=== PATIENT | female | born 1935 | race Caucasian/White ===

== ENCOUNTER 2017-03-30 07:21 | Emergency (ER) | payer MEDICARE ==
[~2017-03-30] VITALS: Ht 160 cm; Wt 53.0 kg
[~2017-03-30 07:21] MED LIST: ASPI325T PO; ATEN1TAB73 PO; BUDE.5I NEB; CENTTAB; DEXI60CA PO; FEXO15TA PO; IPRA0.02 NEB; MOBI7.5T PO; PRAS5TAB PO; ROSU1TAB4 PO; TUMS500C CHEW; VAGI10TA VAGINAL; VALA500T PO; VASO10TA8 PO; VITA400C59 CHEW; XOPEAER4 INH
[2017-03-30 07:27] VITALS: BP 175/77; PULSE 86; RESP 16; TEMP 97.9; O2SAT 99
[2017-03-30] MEDS ORDERED: VALT500T PO (07:48)
[2017-03-30] MEDS ORDERED: VAGI10TA VAGINAL (07:48)
[2017-03-30] MEDS ORDERED: ALBUAER3 INH (07:48)
[2017-03-30] MEDS ORDERED: ENAL10TA PO (07:48)
[2017-03-30] MEDS ORDERED: DEXI60CA2 PO (07:48)
--- NOTE | 2017-03-30 07:54 | PD ---
HPI Chief Complaint: Respiratory Symptoms Time Seen by Provider: 07:49 Travel History International Travel<30 days: No Contact w/Intl Traveler<30days: No Traveled to known affect area: No History of Present Illness HPI This patient appears visibly anxious. She woke up this morning at 5 AM complaining of palpitations and nausea. She could feel her heartbeat in her chest. She is not having any pain or pressure or tightness or heaviness. Severity was mild to moderate. Duration 2 hours. No alleviating factors. She has no vomiting or diarrhea or fever or presyncopal symptoms. PFSH Past Medical History Arthritis: Yes Asthma: Yes Heart Rhythm Problems: Yes Cardiovascular Problems: Yes Diminished Hearing: No GERD: Yes Hypertension: Yes Respiratory: Yes Immunizations Current: Yes PNEUMOCCOCAL Vaccine (Year): 1999 Menopausal: Yes Para: 2 Past Surgical History Appendectomy: Yes Cardiac Surgery: Yes (COARTATION OF AORTA IN 1965) Eye Surgery: Yes (CATARACTS SURGERY BOTH EYES) Hysterectomy: Yes Tonsillectomy: Yes (ADENOIDECTOMY) Social History Alcohol Use: Yes (SOCIALLY) Tobacco Use: No (QUIT 50 YEARS AGO) Substance Use: No Allergies-Medications (Allergen,Severity, Reaction): Coded Allergies: Demerol (Verified Allergy, Severe, RASH, 03/30/17) Sulfa (Verified Allergy, Severe, NAUSEA AND VOMITING, 03/30/17) Fentanyl (Verified Allergy, Intermediate, Vomiting , 03/30/17) Reported Meds & Prescriptions Reported Meds & Active Scripts Active Reported Proair Hfa 8.5 GM Inh (Albuterol Sulfate) 90 Mcg/Act Aer 2 Puff INH Q4-6H PRN 108 mcg/actuation Vagifem Vaginal (Estradiol Vaginal) 10 Mcg Vagtab 25 Mcg VAGINAL 2XWEEK Valtrex (Valacyclovir HCl) 500 Mg Tab 250 Mg PO DAILY Enalapril (Enalapril Maleate) 10 Mg Tab 10 Mg PO DAILY Dexilant (Dexlansoprazole) 60 Mg Vinh.bp 1 Cap PO DAILY Effient (Prasugrel) 5 Mg Tab 5 Mg PO DAILY Danelle Allergy (Fexofenadine HCl) 180 Mg Tab 180 Mg PO DAILY Pulmicort Respules (Budesonide) 0.5 Mg/2 Ml Neb 0.5 Mg NEB DAILY NEB Tenormin (Atenolol) 25 Mg Tab 25 Mg PO DAILY Aspirin 325 Mg Tab 325 Mg PO DAILY Review of Systems General / Constitutional: No: Fever Eyes: No: Visual changes HENT: No: Headaches Cardiovascular: Positive: Palpitations, No: Chest Pain or Discomfort Respiratory: No: Shortness of Breath Gastrointestinal: Positive: Nausea, No: Abdominal Pain Genitourinary: No: Dysuria Musculoskeletal: No: Pain Skin: No Rash Neurologic: No: Weakness Psychiatric: Positive: Anxiety, No: Depression Endocrine: No: Polydipsia Hematologic/Lymphatic: No: Easy Bruising Physical Exam Narrative GENERAL: Thin elderly well-developed patient in no apparent distress. SKIN: Focused skin assessment reveals no rash and nodules. Skin is Warm and dry. HEAD: Atraumatic. Normocephalic. EYES: Pupils equal and round. No scleral icterus. No injection or drainage. ENT: No nasal bleeding or discharge. Mucous membranes pink and moist. NECK: Trachea midline. No JVD. CARDIOVASCULAR: Regular rate and rhythm. No murmur appreciated. RESPIRATORY: No accessory muscle use. Clear to auscultation. Breath sounds equal bilaterally. GASTROINTESTINAL: Abdomen soft, non-tender, nondistended. Hepatic and splenic margins not palpable. MUSCULOSKELETAL: No obvious deformities. No clubbing. No cyanosis. No edema. NEUROLOGICAL: Awake and alert. No obvious cranial nerve deficits. Motor grossly within normal limits. Normal speech. PSYCHIATRIC: Anxious mood and affect; insight and judgment normal. Data Data Last Documented VS Vital Signs Date Time Temp Pulse Resp B/P Pulse Ox O2 Delivery O2 Flow Rate FiO2 03/30/17 08:40 62 18 176/93 98 Room Air 03/30/17 07:27 97.9 Orders Iv Access Insert/Monitor (03/30/17 07:49) Electrocardiogram (03/30/17 ) Metalizing Machine Operator / Telemetry [email or web address] (03/30/17 07:49) Complete Blood Count With Diff (03/30/17 07:49) Basic Metabolic Panel (Bmp) (03/30/17 07:49) Clonidine (Catapres) (03/30/17 08:00) Labs Laboratory Tests Test 03/30/17 08:09 White Blood Count 5.3 TH/MM3 Red Blood Count 4.52 MIL/MM3 Hemoglobin 13.1 GM/DL Hematocrit 39.1 % Mean Corpuscular Volume 86.6 FL Mean Corpuscular Hemoglobin 29.1 PG Mean Corpuscular Hemoglobin 33.6 % Concent Red Cell Distribution Width 13.4 % Platelet Count 174 TH/MM3 Mean Platelet Volume 8.4 FL Neutrophils (%) (Auto) 71.7 % Lymphocytes (%) (Auto) 17.1 % Monocytes (%) (Auto) 8.5 % Eosinophils (%) (Auto) 1.8 % Basophils (%) (Auto) 0.9 % Neutrophils # (Auto) 3.8 TH/MM3 Lymphocytes # (Auto) 0.9 TH/MM3 Monocytes # (Auto) 0.5 TH/MM3 Eosinophils # (Auto) 0.1 TH/MM3 Basophils # (Auto) 0.0 TH/MM3 CBC Comment DIFF FINAL Differential Comment Sodium Level 144 MEQ/L Potassium Level 3.7 MEQ/L Chloride Level 108 MEQ/L Carbon Dioxide Level 30.8 MEQ/L Anion Gap 5 MEQ/L Blood Urea Nitrogen 17 MG/DL Creatinine 0.73 MG/DL Estimat Glomerular Filtration 77 ML/MIN Rate Random Glucose 95 MG/DL Calcium Level 9.3 MG/DL [facility] Medical Decision Making Medical Screen Exam Complete: Yes Emergency Medical Condition: Yes Medical Record Reviewed: Yes Differential Diagnosis Anxiety, cardiac arrhythmia, electrolyte abnormality Narrative Course I have reviewed the patient's electronic medical record. History of cardiac stent placed in January I reviewed her EKG which shows sinus rhythm with no ST elevation or ectopy Extended cardiac monitoring reveals sinus rhythm without ectopy No clinical suspicion of ACS here IV placed CBC is normal Metabolic profile is normal Patient has accelerated hypertension and a dose of clonidine given her blood pressure will be reassessed Blood pressure is improved on reevaluation No evidence of emergent condition here. Recommend primary care follow-up. I suspect that there was some anxiety involved. Diagnosis Primary Impression: Heart palpitations Additional Impressions: Accelerated hypertension Anxiety Additional Instructions: The patient was advised to follow up with their physician and return if they worsen. Check and record blood pressure daily Med/Other Pt SpecificInfo: Other Disposition: DISCHARGE HOME Condition: Stable Tin Roque MD Mar 30, 2017 07:54
[2017-03-30] MEDS ORDERED: cloNIDine HCL 0.2 MG TAB PO ONE (08:00)
[2017-03-30 08:18] VITALS: BP 198/107; PULSE 66; RESP 18; O2SAT 98
[2017-03-30 08:24] LABS: AUTOMATED NEUTROPHIL # 3.8 TH/MM3 (1.8-7.7); BASOPHIL % 0.9 % (0.0-2.0); EOSINOPHIL # 0.1 TH/MM3 (0-0.4); EOSINOPHIL % 1.8 % (0.0-4.0); HEMATOCRIT 39.1 % (35.0-46.0); HEMO FLAGS DIFF FINAL; LYMPH % 17.1 % (9.0-44.0); LYMPHOCYTE # 0.9 TH/MM3 (1.0-4.8); MEAN CELL VOLUME 86.6 FL (80.0-100.0); MEAN CORPUSCULAR HEMOGLOBIN 29.1 PG (27.0-34.0); MEAN CORPUSCULAR HGB CONC 33.6 % (32.0-36.0); MONO % 8.5 % (0.0-8.0); NEUT % 71.7 % (16.0-70.0); PLATELET COUNT 174 TH/MM3 (150-450); RED BLOOD COUNT 4.52 MIL/MM3 (4.00-5.30); RED CELL DISTRIBUTION WIDTH 13.4 % (11.6-17.2); WHITE BLOOD COUNT 5.3 TH/MM3 (4.0-11.0)
[2017-03-30 08:33] LABS: POTASSIUM 3.7 MEQ/L (3.5-5.1)
[2017-03-30 08:36] LABS: BICARBONATE 30.8 MEQ/L (21.0-32.0)
[2017-03-30 08:40] VITALS: BP 176/93; PULSE 62; RESP 18; O2SAT 98
[2017-03-30 09:48] VITALS: BP 145/54
--- NOTE | 2017-03-30 12:24 | EKG ---
Date Performed: 03/30/2017 Time Performed: 07:36:07 PTAGE: 81 years EKG: Sinus rhythm LEFT ANTERIOR FASCICULAR BLOCK LEFT VENTRICULAR HYPERTROPHY AND ST-T CHANGE POSSIBLE ANTEROSEPTAL MY OCARDIAL INFARCTION ABNORMAL ECG PREVIOUS TRACING : 10/31/2015 16.20 Compared to prior tracing no significant change DOCTOR: Lucas Lai Interpretating Date/Time 03/30/2017 12:21:56
== END 2017-03-30 09:53 | disposition home or self-care (01) ==
LOC: PHED 07:21
DX: R00.2 Palpitations (principal); I10 Essential (primary) hypertension; F41.9 Anxiety disorder, unspecified; R94.31 Abnormal electrocardiogram [ECG] [EKG]; R11.0 Nausea; Z87.39 Personal history of other diseases of the musculoskeletal system and connective tissue; Z87.09 Personal history of other diseases of the respiratory system; Z86.79 Personal history of other diseases of the circulatory system; Z87.19 Personal history of other diseases of the digestive system
CPT/HCPCS: 80048; 85025; 93005; 99284

== ENCOUNTER 2017-06-22 08:17 | Observation (INO) | payer MEDICARE ==
[~2017-06-22] VITALS: Ht 160 cm; Wt 52.5 kg
[2017-06-22] VITALS (7 sets, daily range): BP systolic 126–165; BP diastolic 59–70; PULSE 56–68; RESP 14–18; TEMP 97.6–98.4; O2SAT 96–99
[~2017-06-22 08:17] MED LIST changes: +ALBUAER3 INH; +ASPI-183 PO; -ASPI325T PO; -CENTTAB; -DEXI60CA PO; +DEXI60CA3 PO; +ENAL10TA PO; -IPRA0.02 NEB; -MOBI7.5T PO; -ROSU1TAB4 PO; -TUMS500C CHEW; -VALA500T PO; +VALT500T PO; -VASO10TA8 PO; -VITA400C59 CHEW; -XOPEAER4 INH
[2017-06-22] MEDS ORDERED: PROT40TA PO (08:40)
[2017-06-22] MEDS ORDERED: SODIUM CHLORIDE 0.9% FLUSH 10 ML FLUSH IVF PRN (09:00)
--- NOTE | 2017-06-22 09:02 | PD ---
HPI Chief Complaint: Syncope/Near-Syncope Time Seen by Provider: 08:47 Travel History International Travel<30 days: No Contact w/Intl Traveler<30days: No Traveled to known affect area: No History of Present Illness HPI 82-year-old female patient with history of CAD status post stenting, hypertension, patient of Dr. Motta, presents to the ER today because she had an episode of lightheadedness, epigastric and substernal discomfort which she states is not really a pain, and felt like she was going to pass out. She states that she has had some more minor episodes recently in the past few months after she had received a stent in January, and states that her merchant mariner has been changing her medications. She also states she feels somewhat short of breath. She denies any coughing, fevers, vomiting, or any other symptoms. Modifying Factors: None Associated Signs & Symptoms: Substernal and epigastric discomfort, shortness of breath, near-syncope Risk Factors: Cardiac history PFSH Past Medical History Hx Anticoagulant Therapy: Yes Arthritis: Yes Asthma: Yes Heart Rhythm Problems: Yes Cardiac Catheterization: Yes Cardiovascular Problems: Yes Diminished Hearing: No GERD: Yes Hypertension: Yes Respiratory: Yes Immunizations Current: Yes Tetanus Vaccination: > 5 Years PNEUMOCCOCAL Vaccine (Year): 1999 ?: Not Menopausal: Yes Para: 2 Past Surgical History Appendectomy: Yes Cardiac Surgery: Yes (COARTATION OF AORTA IN 1965) Coronary Stent: Yes Eye Surgery: Yes (CATARACTS SURGERY BOTH EYES) Hysterectomy: Yes Tonsillectomy: Yes (ADENOIDECTOMY) Social History Alcohol Use: Yes (SOCIALLY) Tobacco Use: No (QUIT 50 YEARS AGO) Substance Use: No Allergies-Medications (Allergen,Severity, Reaction): Coded Allergies: Sulfa (Sulfonamide Antibiotics) (Unverified Allergy, Severe, NAUSEA AND VOMITING, 06/22/17) meperidine (Unverified Allergy, Severe, RASH, 06/22/17) fentanyl (Unverified Allergy, Intermediate, Vomiting , 06/22/17) Reported Meds & Prescriptions Reported Meds & Active Scripts Active Reported Protonix (Pantoprazole Sodium) 40 Mg Tab 40 Mg PO DAILY Proair Hfa 8.5 GM Inh (Albuterol Sulfate) 90 Mcg/Act Aer 2 Puff INH Q4-6H PRN 108 mcg/actuation Enalapril (Enalapril Maleate) 10 Mg Tab 10 Mg PO DAILY Effient (Prasugrel) 5 Mg Tab 5 Mg PO DAILY Danelle Allergy (Fexofenadine HCl) 180 Mg Tab 180 Mg PO DAILY Pulmicort Respules (Budesonide) 0.5 Mg/2 Ml Neb 0.5 Mg NEB DAILY NEB Tenormin (Atenolol) 25 Mg Tab 25 Mg PO DAILY Aspirin 325 Mg Tab 81 Mg PO DAILY Review of Systems Except as stated in HPI: all other systems reviewed are Neg Physical Exam Narrative GENERAL: Well-developed elderly white female patient currently in mild distress. Awake, alert, oriented 3. SKIN: Focused skin assessment warm/dry. HEAD: Atraumatic. Normocephalic. EYES: Pupils equal and round. No scleral icterus. No injection or drainage. ENT: No nasal bleeding or discharge. Mucous membranes pink and moist. NECK: Trachea midline. No JVD. CARDIOVASCULAR: Regular rate and rhythm. No murmur appreciated. Pulses are present and equal bilaterally. RESPIRATORY: Mild accessory muscle use. Clear to auscultation. Breath sounds equal bilaterally. GASTROINTESTINAL: Abdomen soft, non-tender, nondistended. Hepatic and splenic margins not palpable. MUSCULOSKELETAL: No obvious deformities. No clubbing. No cyanosis. No edema. NEUROLOGICAL: Awake and alert. No obvious cranial nerve deficits. Motor grossly within normal limits. Normal speech. PSYCHIATRIC: Appropriate mood and affect; insight and judgment normal. Data Data Last Documented VS Vital Signs Date Time Temp Pulse Resp B/P (MAP) Pulse Ox O2 Delivery O2 Flow Rate FiO2 06/22/17 08:31 100 06/22/17 08:20 97.6 68 14 165/70 (101) Orders Orders Electrocardiogram (06/22/17 ) Electrocardiogram (06/22/17 08:47) Complete Blood Count With Diff (06/22/17 08:47) Comprehensive Metabolic Panel (06/22/17 08:47) Magnesium (Mg) (06/22/17 08:47) B-Type Natriuretic Peptide (06/22/17 08:47) Ckmb (Isoenzyme) Profile (06/22/17 08:47) Troponin I (06/22/17 08:47) Act Partial Throm Time (Ptt) (06/22/17 08:47) Prothrombin Time / Inr (Pt) (06/22/17 08:47) Urinalysis - C+S If Indicated (06/22/17 08:47) Chest, Single Ap (06/22/17 08:47) Ecg Monitoring (06/22/17 08:47) Iv Access Insert/Monitor (06/22/17 08:47) Oximetry (06/22/17 08:47) Sodium Chloride 0.9% Flush (Ns Flush) (06/22/17 09:00) D-Dimer (06/22/17 09:05) Admit Order (Ed Use Only) (06/22/17 12:32) Labs Laboratory Tests Test 06/22/17 09:00 06/22/17 11:53 White Blood Count 5.9 TH/MM3 Red Blood Count 4.56 MIL/MM3 Hemoglobin 13.3 GM/DL Hematocrit 39.8 % Mean Corpuscular Volume 87.2 FL Mean Corpuscular Hemoglobin 29.1 PG Mean Corpuscular Hemoglobin Concent 33.4 % Red Cell Distribution Width 15.0 % Platelet Count 166 TH/MM3 Mean Platelet Volume 8.6 FL Neutrophils (%) (Auto) 71.7 % Lymphocytes (%) (Auto) 17.1 % Monocytes (%) (Auto) 8.6 % Eosinophils (%) (Auto) 1.8 % Basophils (%) (Auto) 0.8 % Neutrophils # (Auto) 4.3 TH/MM3 Lymphocytes # (Auto) 1.0 TH/MM3 Monocytes # (Auto) 0.5 TH/MM3 Eosinophils # (Auto) 0.1 TH/MM3 Basophils # (Auto) 0.0 TH/MM3 CBC Comment DIFF FINAL Differential Comment Prothrombin Time 10.7 SEC Prothromb Time International Ratio 1.0 RATIO Activated Partial Thromboplast Time 25.5 SEC D-Dimer Quantitative (PE/DVT) 0.51 MG/L FEU Blood Urea Nitrogen 25 MG/DL Creatinine 0.83 MG/DL Random Glucose 82 MG/DL Total Protein 7.2 GM/DL Albumin 3.5 GM/DL Calcium Level 9.2 MG/DL Magnesium Level 2.2 MG/DL Alkaline Phosphatase 64 U/L Aspartate Amino Transf (AST/SGOT) 28 U/L Alanine Aminotransferase (ALT/SGPT) 29 U/L Total Bilirubin 0.4 MG/DL Sodium Level 139 MEQ/L Potassium Level 3.7 MEQ/L Chloride Level 104 MEQ/L Carbon Dioxide Level 29.1 MEQ/L Anion Gap 6 MEQ/L Estimat Glomerular Filtration Rate 66 ML/MIN Total Creatine Kinase 61 U/L Troponin I LESS THAN 0.02 NG/ML B-Type Natriuretic Peptide 64 PG/ML Urine Color YELLOW Urine Turbidity HAZY Urine pH 7.0 Urine Specific Kinz[place] 1.012 Urine Protein NEG mg/dL Urine Glucose (UA) NEG mg/dL Urine Ketones NEG mg/dL Urine Occult Blood NEG Urine Nitrite NEG Urine Bilirubin NEG Urine Urobilinogen LESS THAN 2.0 MG/DL Urine Leukocyte Esterase MOD Urine RBC LESS THAN 1 /hpf Urine WBC 1 /hpf Urine Squamous Epithelial Cells 3 /hpf Urine Amorphous Sediment MOD Urine Bacteria OCC /hpf Microscopic Urinalysis Comment CULT NOT INDICATED MDM Medical Decision Making Medical Screen Exam Complete: Yes Emergency Medical Condition: Yes Medical Record Reviewed: Yes Interpretation(s) EKG shows normal sinus rhythm at a rate of 60 bpm with a partial left bundle branch block. No signs of acute ST-T elevations or depressions. Laboratory Tests Test 06/22/17 09:00 Neutrophils (%) (Auto) 71.7 % (16.0-70.0) Monocytes (%) (Auto) 8.6 % (0.0-8.0) D-Dimer Quantitative (PE/DVT) 0.51 MG/L FEU (0.00-0.50) Blood Urea Nitrogen 25 MG/DL (7-18) Estimat Glomerular Filtration Rate 66 ML/MIN (>89) Troponin I LESS THAN 0.02 NG/ML Last 24 hours Impressions Chest X-Ray 06/22/17 0892 Signed Impressions: Service Date/Time: Thursday, June 22, 2017 09:00 - CONCLUSION: Normal examination. Efrain Whitehead MD Differential Diagnosis Chest discomfort, shortness of breath, near-syncope: Dysrhythmias versus ACS versus pneumonia versus asthma exacerbation versus dehydration versus metabolic issues Narrative Course EKG did not show any signs of dysrhythmias. Her cardiac enzymes are negative. D-dimer is essentially negative. Chest x-ray was unremarkable. And she appears fairly comfortable in the ER. Vital signs are stable. Case was discussed with Dr. Khalil who is covering for Dr. Jimenez, patient's merchant mariner , and he would like me to admit the patient as an observation for further evaluation. Case was then discussed with family practice resident service for admission. Diagnosis Primary Impression: Near syncope Admitting Information Admitting Physician Requests: Admit Case Lang MD Jun 22, 2017 09:02
[2017-06-22 09:12] LABS: AUTOMATED NEUTROPHIL # 4.3 TH/MM3 (1.8-7.7); BASOPHIL % 0.8 % (0.0-2.0); EOSINOPHIL # 0.1 TH/MM3 (0-0.4); EOSINOPHIL % 1.8 % (0.0-4.0); HEMATOCRIT 39.8 % (35.0-46.0); HEMO FLAGS DIFF FINAL; LYMPH % 17.1 % (9.0-44.0); MEAN CELL VOLUME 87.2 FL (80.0-100.0); MEAN CORPUSCULAR HEMOGLOBIN 29.1 PG (27.0-34.0); MEAN CORPUSCULAR HGB CONC 33.4 % (32.0-36.0); MONO % 8.6 % (0.0-8.0); NEUT % 71.7 % (16.0-70.0); PLATELET COUNT 166 TH/MM3 (150-450); RED BLOOD COUNT 4.56 MIL/MM3 (4.00-5.30); WHITE BLOOD COUNT 5.9 TH/MM3 (4.0-11.0)
--- NOTE | 2017-06-22 09:18 | RADRPT ---
EXAM DATE/TIME: 06/22/2017 09:00 [facility] COMPARISON: CHEST SINGLE AP, October 31, 2015, 16:29. INDICATIONS : Faint feeling with shortness of breath. MEDICAL HISTORY : Asthma. SURGICAL HISTORY : Coarctation of the aorta. Cardiac stent. ENCOUNTER: Initial ACUITY: 1 day PAIN SCORE: 0/10 LOCATION: Bilateral chest FINDINGS: A single view of the chest demonstrates the lungs to be symmetrically aerated without evidence of mas s, infiltrate or effusion. The cardiomediastinal contours are unremarkable. Osseous structures are intact. CONCLUSION: Normal examination. Efrain Whitehead MD on June 22, 2017 at 9:15 Board Certified Radiologist. This report was verified electronically.
[2017-06-22 09:23] LABS: APTT (PATIENT) 25.5 SEC (24.3-30.1); PROTHROMBIN TIME - PATIENT 10.7 SEC (9.8-11.6)
[2017-06-22 09:32] LABS: ALT (GPT) 29 U/L (10-53); ANION GAP 6 MEQ/L (5-15); BICARBONATE 29.1 MEQ/L (21.0-32.0); BLOOD UREA NITROGEN 25 MG/DL (7-18); CHLORIDE 104 MEQ/L (98-107); GLOMERULAR FILTRATION RATE 66 ML/MIN (>89); MAGNESIUM 2.2 MG/DL (1.5-2.5); POTASSIUM 3.7 MEQ/L (3.5-5.1); SODIUM (NA) 139 MEQ/L (136-145)
[2017-06-22 10:00] LABS: ALKALINE PHOSPHATASE 64 U/L (45-117); AST (GOT) 28 U/L (15-37); TOTAL BILIRUBIN ADULT 0.4 MG/DL (0.2-1.0)
[2017-06-22 10:12] LABS: CREATINE KINASE 61 U/L (26-192)
[2017-06-22 12:08] LABS: BACTERIA, URINE OCC /hpf; BLOOD, URINE NEG (NEG); GLUCOSE,URINE NEG (NEG); KETONE, URINE NEG (NEG); NITRITE,URINE NEG (NEG); SQUAMOUS EPITHELIAL CELL URINE 3 /hpf (0-5); URINE COLOR YELLOW (YELLW/STRAW)
[2017-06-22 12:16] LABS: COMMENT (UR) CULT NOT INDICATED; CULTURE IF INDICATED CULT NOT INDICATED
[2017-06-22] MEDS ORDERED: SODIUM CHLORIDE 0.9% FLUSH 10 ML FLUSH IV FLUSH PRN ×2 (12:45→13:30)
--- NOTE | 2017-06-22 13:04 | HHI.HP ---
[facility] Service Family Medicine Primary Care Physician Niko Byrnes MD Admission Diagnosis near syncope Diagnoses: International Travel<30 Days: No Contact w/Intl Traveler<30days: No Known Affected Area: No History of Present Illness Mrs. Jung is a 82 y/o F with extensive PMHx presenting to the ED with the CC of near syncope and chest pain for the last 4-5 days. She is accompanied by her who assists in the history, however they both cannot convey a complete history especially her daily medication history. She states that she has been having intermittent episodes of diaphoresis, SOB, chest pain, and near syncope once to twice a day with and without activity. This morning while at [employer], she had an episode with diaphoresis, chest pain, and near syncope without shortness of breath lasting approximately half an hour. She describes the chest pain as a lower sternal vs. upper epigastric pain up to 6/10 on the pain scale radiating to her back. Due to her pain, she decided to be evaluated at the ED. She denies any recent fevers, NVD, ABD pain, LE edema or pain, vision changes, or other neurologic symptoms. On ROS she does endorse palpitations with tachycardia, but has since subsided upon presenting to the ED. Recently she self discontinued her Chlorthalidone medication as it "made her feel awful," but otherwise cannot describe any recent changes to her daily medications or routine. Upon further investigation, the patient does state that the pain may be routinely 2-4 hours after she eats, however this morning she did not have anything prior to her episode. After ED evaluation, her cheese pancake roller, Dr. Motta, was consulted. Dr. Khalil, cheese pancake roller front office coordinator, recommended she be admitted for observation and ACS rule out. Review of Systems Constitutional: COMPLAINS OF: Weight loss (with anorexia since Stent placed in 11/01), DENIES: Fever, Dizziness Eyes: DENIES: Blurred vision Ears, nose, mouth, throat: DENIES: Vertigo, Throat pain, Running Nose Respiratory: COMPLAINS OF: Cough, Shortness of breath, DENIES: Hemoptysis, Sputum production Cardiovascular: COMPLAINS OF: Chest pain, Syncope (Pre-Syncope ), Dyspnea on Exertion, DENIES: Lower Extremity Edema Gastrointestinal: DENIES: Abdominal pain, Black stools, Bloody stools, Diarrhea , Nausea, Vomiting Genitourinary: DENIES: Dysuria Musculoskeletal: DENIES: Joint pain Integumentary: DENIES: Rash Hematologic/lymphatic: DENIES: Lymphadenopathy Neurologic: DENIES: Headache Psychiatric: DENIES: Mood changes Past Family Social History Past Medical History Irregular Heartbeat - PVCs Leaky heart valve - no echocardiogram per chart review GERD Hiatal hernia Hypertension Seasonal allergies / recurrent sinusitis Anxiety Stress incontinence Fibrocystic breast disease Spasmodic dysphonia Chronic canker sores Past Surgical History Tonsillectomy 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 SKIN: Warm and dry. No rash. HEENT: Atraumatic, normocephalic with EOMI. PERRLA. MMM. Oropharynx clear. No rhinorrhea. No JVD, LAD, or thyroid abnormality appreciated. Dysphonia of voice. CARDIOVASCULAR: Bradycardic with regular rhythm. No MGR appreciated. 2+ pulses in all 4 extremities. RESPIRATORY: Clear to auscultation bilaterally with no CRW. No increased work of breathing. GASTROINTESTINAL: Abdomen soft, non-tender, nondistended with positive bowel sounds. No masses appreciated. MUSCULOSKELETAL: No cyanosis or edema. Strength grossly WNL. 2+ pulses in all 4 extremities. Capillary refill within normal limits. BACK: Nontender without obvious deformity. No CVA tenderness. NEURO/PSYCH: Afocal. Awake, alert, and oriented x3. Normal speech and judgment. Laboratory Laboratory Tests Test 06/22/17 09:00 06/22/17 11:53 White Blood Count 5.9 Red Blood Count 4.56 Hemoglobin 13.3 Hematocrit 39.8 Mean Corpuscular Volume 87.2 Mean Corpuscular Hemoglobin 29.1 Mean Corpuscular Hemoglobin Concent 33.4 Red Cell Distribution Width 15.0 Platelet Count 166 Mean Platelet Volume 8.6 Neutrophils (%) (Auto) 71.7 Lymphocytes (%) (Auto) 17.1 Monocytes (%) (Auto) 8.6 Eosinophils (%) (Auto) 1.8 Basophils (%) (Auto) 0.8 Neutrophils # (Auto) 4.3 Lymphocytes # (Auto) 1.0 Monocytes # (Auto) 0.5 Eosinophils # (Auto) 0.1 Basophils # (Auto) 0.0 CBC Comment DIFF FINAL Differential Comment Prothrombin Time 10.7 Prothromb Time International Ratio 1.0 Activated Partial Thromboplast Time 25.5 D-Dimer Quantitative (PE/DVT) 0.51 Blood Urea Nitrogen 25 Creatinine 0.83 Random Glucose 82 Total Protein 7.2 Albumin 3.5 Calcium Level 9.2 Magnesium Level 2.2 Alkaline Phosphatase 64 Aspartate Amino Transf (AST/SGOT) 28 Alanine Aminotransferase (ALT/SGPT) 29 Total Bilirubin 0.4 Sodium Level 139 Potassium Level 3.7 Chloride Level 104 Carbon Dioxide Level 29.1 Anion Gap 6 Estimat Glomerular Filtration Rate 66 Total Creatine Kinase 61 Troponin I LESS THAN 0.02 B-Type Natriuretic Peptide 64 Urine Color YELLOW Urine Turbidity HAZY Urine pH 7.0 Urine Specific [place] 1.012 Urine Protein NEG Urine Glucose (UA) NEG Urine Ketones NEG Urine Occult Blood NEG Urine Nitrite NEG Urine Bilirubin NEG Urine Urobilinogen LESS THAN 2.0 Urine Leukocyte Esterase MOD Urine RBC LESS THAN 1 Urine WBC 1 Urine Squamous Epithelial Cells 3 Urine Amorphous Sediment MOD Urine Bacteria OCC Microscopic Urinalysis Comment CULT NOT INDICATED Result Diagram: 06/22/1789906/22/17 0900 Imaging Last 72 hours Impressions Chest X-Ray 06/22/17 0847 Signed Impressions: Service Date/Time: Thursday, June 22, 2017 09:00 - CONCLUSION: Normal examination. MD Srinath Oliva VTE Risk Assessment Srinath VTE Risk Assessment: Mod/High Risk (score >= 2) Vinhrini Risk Assessment Model Point Value = 1 Point Value = 2 Point Value = 3 Point Value = 5 Age 41-60 Minor surgery BMI > 25 kg/m2 Swollen legs Varicose veins or History of unexplained or recurrent spontaneous Oral contraceptives or hormone replacement Sepsis (< 1 month) Serious lung disease, including pneumonia (< 1 month) Abnormal pulmonary function Acute myocardial infarction Congestive heart failure (< 1 month) History of inflammatory bowel disease Medical patient at bed rest Age 61-74 Arthroscopic surgery Major open surgery (> 45 min) Laparoscopic surgery (> 45 min) Malignancy Confined to bed (> 72 hours) Immobilizing plaster cast Central venous access Age >= 75 History of VTE Family history of VTE Factor V Leiden Prothrombin [id number] Lupus anticoagulant Anticardiolipin antibodies Elevated serum homocysteine Heparin-induced thrombocytopenia Other congenital or acquired thrombophilia Stroke (< 1 month) Elective arthroplasty Hip, pelvis, or leg fracture Acute spinal cord injury (< 1 month) Prophylaxis Regimen Total Risk Factor Score Risk Level Prophylaxis Regimen 0-1 Low Early ambulation 2 Moderate Order ONE of the following: *Sequential Compression Device (SCD) *Heparin 5000 units SQ BID 3-4 Higher Order ONE of the following medications: *Heparin 5000 units SQ TID *Enoxaparin/Lovenox 40 mg SQ daily (WT < 150 kg, CrCl > 30 mL/min) *Enoxaparin/Lovenox 30 mg SQ daily (WT < 150 kg, CrCl > 10-29 mL/min) *Enoxaparin/Lovenox 30 mg SQ BID (WT < 150 kg, CrCl > 30 mL/min) AND/OR *Sequential Compression Device (SCD) 5 or more Highest Order ONE of the following medications: *Heparin 5000 units SQ TID (Preferred with Epidurals) *Enoxaparin/Lovenox 40 mg SQ daily (WT < 150 kg, CrCl > 30 mL/min) *Enoxaparin/Lovenox 30 mg SQ daily (WT < 150 kg, CrCl > 10-29 mL/min) *Enoxaparin/Lovenox 30 mg SQ BID (WT < 150 kg, CrCl > 30 mL/min) AND *Sequential Compression Device (SCD) Assessment and Plan Assessment and Plan Mrs. Jung is an 82 y/o female with an extensive past medical history currently admitted for observation secondary to chest pain. Code Status FULL CODE Discussed Condition With Dr. Lang, ED physician Problem List: (1) Chest pain ICD Codes: R07.9 - Chest pain, unspecified Status: Acute Plan: Patient admitted for observation and ACS rule out per cardiology. While pain is lower substernal, the patient's history, exam, and preliminary laboratory evaluation consistent with likely GI associated pain as her pain in epigastric with an isolated elevated BUN. Patient without neurological history and signs of possible TIA/CVA. -CXR: WNL -EKG: Sinus bradycardia without significant change from previous study (04/03) per medical team read. No obvious interval or ST changes appreciated. -Repeat x2 pending -CBC: WNL, H/H stable at 13.3/39.8 -Repeat H/H: Ordered -FOBT: Ordered -Coagulation Panel: WNL -CMP: BUN elevated to 25, otherwise WNL -Troponin: Negative x1 -Repeat x2 pending with CKMB -BNP: Negative at 64 -D-Dimer: Mildly elevated to 0.51 -Lipid Profile: Pending -TSH: Pending -Telemetry ordered -Cardiology consult placed, appreciate recommendations Medications: -Nitroglycerin as needed for chest pain -Continue Effient, ASA, Vasotec, and Atenolol (2) Near syncope ICD Codes: R55 - Syncope and collapse Status: Acute Plan: Patient complaining of near syncopal symptoms and concordance with chest pain -Please see plan as above (3) CAD (coronary artery disease) ICD Codes: I25.10 - Atherosclerotic heart disease of [place] coronary artery without angina pectoris Status: Chronic Plan: Patient with history of CAD with cardiac catheterization and stent placement 02/01 -Patient states she has had a recent echocardiogram and states she does "not have heart failure" -Please see plan as above Medications: -Continue home Prasugrel, ASA, and Rosuvastatin (4) GERD (gastroesophageal reflux disease) ICD Codes: K21.9 - Gastroesophageal reflux disease Status: Chronic Plan: Patient with history of GERD and hiatal hernia. Patient states she had a recent upper endoscopy with her GI specialist (unknown) was normal showing only her hiatal hernia per patient. Per exam, history, and preliminary work up pain likely secondary to GI source. Patient also has dysphagia requiring esophageal dilation multiple times per year. Patient does not endorse difficulty swallowing or vomiting currently. -CBC: WNL -Repeat H/H: ordered -FOBT: ordered -CMP: BUN elevated 25, otherwise negative -Defer GI consult as patient is currently without pain, low threshold to consult pending clinical course Medications: -Continue Protonix 40mg twice a day -Maalox as need for reflux chest pain (5) Chronic asthma ICD Codes: J45.909 - Unspecified asthma, uncomplicated Status: Chronic Plan: Patient with history of chronic asthma on Spiriva and Albuterol as needed at home -Exam: WNL with pulse oximetry of 100% -Pulse oximetry with VS checks, NC oxygen as needed -Incentive Spirometry Medications: -Continue home Spiriva and Albuterol as needed (6) Nutrition, metabolism, and development symptoms ICD Codes: R63.8 - Other symptoms and signs concerning food and fluid intake Status: Acute Plan: Diet: Regular as tolerated Fluids: Tolerating fluids by mouth Electrolytes: WNL, continue to monitor Prophylaxis: Protonix and Maalox for GI prophylaxis, Albuterol for SOB, Clonidine for BP >180/110, Tylenol for Headache/Fever, Nitroglycerin for cardiac chest pain, Colace for constipation (7) No contraindication to deep vein thrombosis (DVT) prophylaxis ICD Codes: Z78.9 - Other specified health status Status: Acute Plan: Patient currently requiring DVT prophylaxis -Heparin 5000 units every 8 hours -SCD/TEDs Problem Qualifiers (1) Chest pain: Qualified Codes: R07.89 - Other chest pain (2) CAD (coronary artery disease): Qualified Codes: I25.10 - Atherosclerotic heart disease of [place] coronary artery without angina pectoris (3) GERD (gastroesophageal reflux disease): Qualified Codes: K21.9 - Gastro-esophageal reflux disease without esophagitis (4) Chronic asthma: Qualified Codes: J45.909 - Unspecified asthma, uncomplicated Fransico Mendoza MD R2 Jun 22, 2017 13:04
[2017-06-22] MEDS ORDERED: ALBUTEROL SULFATE 90 MCG/ACT HFA 8 GM INHALER INH PRN (13:15)
[2017-06-22] MEDS ORDERED: PANTOPRAZOLE SOD 40 MG DELAYED RELEASE TAB PO SCH ×2 (13:15→14:30)
[2017-06-22] MEDS ORDERED: NITROGLYCERIN 0.4 MG SL 25 TABS/BTL SL PRN (13:30)
[2017-06-22] MEDS ORDERED: ACETAMINOPHEN 325 MG TAB PO PRN (13:30)
[2017-06-22] MEDS ORDERED: ONDANSETRON HCL 4 MG/2 ML VIAL IV PUSH PRN (13:30)
[2017-06-22] MEDS ORDERED: DOCUSATE SODIUM 100 MG CAP PO PRN (13:30)
[2017-06-22] MEDS ORDERED: ROSU1TAB4 PO (13:34)
[2017-06-22] MEDS: RESP: BUDESONIDE 0.5 MG/2 ML NEB NEB SCH (14:14)
[2017-06-22] MEDS ORDERED: MAGNESIUM HYDROXIDE SUSP 30 ML CUP PO PRN (14:45)
[2017-06-22] MEDS ORDERED: cloNIDine HCL 0.1 MG TAB PO PRN (15:45)
[2017-06-22] MEDS: HEPARIN SODIUM - SQ 10,000 UNITS/ML VIAL SQ SCH ×2 (15:56→23:00)
[2017-06-22] MEDS: ENALAPRIL MALEATE 10 MG TAB PO SCH (16:00)
[2017-06-22 17:17] LABS: CREATINE KINASE 60 U/L (26-192)
[2017-06-22 19:05] LABS: HEMATOCRIT 38.4 % (35.0-46.0); REVIEW FLAG FINAL
[2017-06-22] MEDS: SODIUM CHLORIDE 0.9% FLUSH 10 ML FLUSH IV FLUSH SCH (20:38)
[2017-06-22] MEDS: PANTOPRAZOLE SOD 40 MG DELAYED RELEASE TAB PO SCH (20:39)
[2017-06-22] MEDS ORDERED: ATORVASTATIN 10 MG TAB PO SCH (21:00)
[2017-06-22] MEDS ORDERED: SODIUM CHLORIDE 0.9% FLUSH 10 ML FLUSH IV FLUSH SCH (21:00)
--- NOTE | 2017-06-22 21:13 | EKG ---
Date Performed: 06/22/2017 Time Performed: 15:21:31 PTAGE: 82 years EKG: SINUS BRADYCARDIA LEFT ANTERIOR FASCICULAR BLOCK MINIMAL VOLTAGE CRITERIA FOR LVH, CONSIDER NORMAL VARIANT SEPTAL MYOCARDIAL INFARCTION NONSPECIFIC INTRAVENTRICULAR CONDUCTION DELAY ABNORMAL E CG PREVIOUS TRACING : 06/22/2017 08.49 No significant change from previous tracing noted. DOCTOR: Alex Lemus Interpretating Date/Time 06/22/2017 21:12:09
--- NOTE | 2017-06-22 21:20 | EKG ---
Date Performed: 06/22/2017 Time Performed: 08:49:46 PTAGE: 82 years EKG: SINUS BRADYCARDIA LEFT ANTERIOR FASCICULAR BLOCK SEPTAL MYOCARDIAL INFARCTION NONSPECIFIC I NTRAVENTRICULAR CONDUCTION DELAY ABNORMAL ECG PREVIOUS TRACING : 03/30/2017 07.36 No significant change from previous tracing noted. DOCTOR: Alex Lemus Interpretating Date/Time 06/22/2017 21:18:53
[2017-06-22 23:37] LABS: CREATINE KINASE 58 U/L (26-192)
[2017-06-23] VITALS (8 sets, daily range): BP systolic 132–185; BP diastolic 61–94; PULSE 56–64; RESP 18–22; TEMP 97.8–98.7; O2SAT 97–99
[2017-06-23] MEDS: HEPARIN SODIUM - SQ 10,000 UNITS/ML VIAL SQ SCH ×2 (06:22→15:00)
[2017-06-23] MEDS: RESP: BUDESONIDE 0.5 MG/2 ML NEB NEB SCH (08:14)
[2017-06-23] MEDS: PANTOPRAZOLE SOD 40 MG DELAYED RELEASE TAB PO SCH (08:23)
[2017-06-23] MEDS: SODIUM CHLORIDE 0.9% FLUSH 10 ML FLUSH IV FLUSH SCH (08:24)
--- NOTE | 2017-06-23 08:27 | EKG ---
Date Performed: 06/22/2017 Time Performed: 22:01:02 PTAGE: 82 years EKG: SINUS BRADYCARDIA LEFT AXIS DEVIATION NONSPECIFIC INTRAVENTRICULAR CONDUCTION DELAY ANTEROL ATERAL MYOCARDIAL INFARCTION, AGE UNDETERMINED PREVIOUS TRACING : 06/22/2017 15.21 Compared to previous tracing, lateral infarct pattern is now evident. DOCTOR: Alex Lemus Interpretating Date/Time 06/23/2017 08:26:12
--- NOTE | 2017-06-23 08:39 | HHI.FPPN ---
Subjective Remarks Mrs. Jung was afebrile with stable vital signs overnight (HR in 50's, normotensive, O2 sat in high 90's). Per discussion with nursing staff, patient not on telemetry overnight. Patient does not report any epigastric/chest pain, shortness of breath, or other symptoms since admission. No dizziness, vision changes, or peripheral numbness/ tingling. Patient with normal appetite; normal bowel movements. Patient states that she would like to go home today if possible. (Krunal Villegas MD, R3) Objective Vitals Vital Signs Date Time Temp Pulse Resp B/P (MAP) Pulse Ox O2 Delivery O2 Flow Rate FiO2 06/23/17 03:53 98.3 56 18 132/61 (84) 97 06/22/17 23:41 98.4 56 18 146/69 (94) 98 06/22/17 20:04 98.0 61 18 126/59 (81) 96 06/22/17 19:49 97 21 06/22/17 15:30 57 06/22/17 15:15 97.8 59 18 141/66 (91) 99 06/22/17 14:36 06/22/17 12:55 98 21 I/O 06/22/17 06/22/17 06/22/17 06/23/17 06/23/17 06/23/17 07:00 15:00 23:00 07:00 15:00 23:00 Intake Total 550 ml 240 ml Balance 550 ml 240 ml Intake Oral 550 ml 240 ml # Voids 3 1 # Bowel Movements 0 (Krunal Villegas MD, R3) Result Diagram: 06/22/17 1845 06/22/17 0900 Imaging Last Impressions Chest X-Ray 06/22/17 0847 Signed Impressions: Service Date/Time: Thursday, June 22, 2017 09:00 - CONCLUSION: Normal examination. Efrain Whitehead MD Objective Remarks GENERAL: NAD; at bedside SKIN: Warm and dry. No rash. HEENT: EOM grossly I. CARDIOVASCULAR: Bradycardic with regular rhythm; no murmurs appreciated. Normal peripheral perfusion in LE's. No LE edema. RESPIRATORY: Clear to auscultation bilaterally; normal rate GASTROINTESTINAL: Abdomen soft, non-tender, nondistended with positive bowel sounds. No masses appreciated. MUSCULOSKELETAL: No cyanosis or edema. Strength grossly WNL. NEURO: Grossly normal CN. Grossly normal peripheral motor/sensory function PSYCH: Normal speech and judgment. (Krunal Villegas MD, R3) A/P Assessment and Plan Mrs. Jung is an 82 y/o female with an extensive past medical history currently admitted for observation secondary to chest pain. (Krunal Villegas MD, R3) Attending Attestation Patient seen and examined. Case reviewed and discussed with the resident team. Agree with plan of care as discussed with me and documented in the resident note. agree with Cardiology that she has classic description of vasovagal sxs. she will follow up with Cardiology and her primary care Dr (Madeleine Mari MD) Problem List: (1) Chest pain ICD Codes: R07.9 - Chest pain, unspecified Status: Acute Plan: Impression: Substernal chest pain in association with epigastric pain. CXR on admission wnl CBC wnl (H/H 13.3/39.8) CMP with BUN 25 but otherwise wnl BNP 64 D-dimer 0.51 Lipid profile: HDL 70, LDL 50, Cholesterol 135 -ACS rule-out: -EKG x1 - sinus bradycardia without significant change; no obvious interval or ST changes appreciated -EKG 2100 06/22 with possible V4 depression -Troponin x3 wnl -Cardiology consulted (Dr. Díaz called by ED 06/22) -Monitor telemetry -Continue outpatient medications -Effient, ASA, Vasotec, and Atenolol -[place] IVF -While D-dimer 0.51, Wells score of 0; will defer CTA -Telemetry started since not on Telemetry overnight -Nitroglycerin as needed for chest pain (2) Near syncope ICD Codes: R55 - Syncope and collapse Status: Acute Plan: Patient complaining of near syncopal symptoms and concordance with chest pain -Please see plan as above -Will monitor telemetry -Will check Orthostatic VS (3) CAD (coronary artery disease) ICD Codes: I25.10 - Atherosclerotic heart disease of [place] coronary artery without angina pectoris Status: Chronic Plan: Patient with history of CAD with cardiac catheterization and stent placement 02/01 -Patient states she has had a recent echocardiogram and states she does "not have heart failure" -Please see plan as above Medications: -Continue home Prasugrel, ASA, and Rosuvastatin (4) GERD (gastroesophageal reflux disease) ICD Codes: K21.9 - Gastroesophageal reflux disease Status: Chronic Plan: Patient with history of GERD and hiatal hernia. Patient states she had a recent upper endoscopy with her GI specialist (unknown) was normal showing only her hiatal hernia per patient. Per exam, history, and preliminary work up pain likely secondary to GI source. Patient also has dysphagia requiring esophageal dilation multiple times per year. Patient does not endorse difficulty swallowing or vomiting currently. -CBC: WNL -Repeat H/H: ordered -FOBT: ordered -CMP: BUN elevated 25, otherwise negative -Defer GI consult as patient is currently without pain, low threshold to consult pending clinical course Medications: -Continue Protonix 40mg twice a day -Maalox as need for reflux chest pain (5) Chronic asthma ICD Codes: J45.909 - Unspecified asthma, uncomplicated Status: Chronic Plan: Patient with history of chronic asthma on Spiriva and Albuterol as needed at home -Exam: WNL with pulse oximetry of 100% -Pulse oximetry with VS checks, NC oxygen as needed -Incentive Spirometry Medications: -Continue home Spiriva and Albuterol as needed (6) Nutrition, metabolism, and development symptoms ICD Codes: R63.8 - Other symptoms and signs concerning food and fluid intake Status: Acute Plan: Diet: Regular as tolerated Fluids: Tolerating fluids by mouth Electrolytes: WNL, continue to monitor Prophylaxis: Protonix and Maalox for GI prophylaxis, Albuterol for SOB, Clonidine for BP >180/110, Tylenol for Headache/Fever, Nitroglycerin for cardiac chest pain, Colace for constipation (7) No contraindication to deep vein thrombosis (DVT) prophylaxis ICD Codes: Z78.9 - Other specified health status Status: Acute Plan: Patient currently requiring DVT prophylaxis -Heparin 5000 units every 8 hours -SCD/TEDs (Krunal Villegas MD, R3) Problem Qualifiers (1) Chest pain: Qualified Codes: R07.89 - Other chest pain (2) CAD (coronary artery disease): Qualified Codes: I25.10 - Atherosclerotic heart disease of [place] coronary artery without angina pectoris (3) GERD (gastroesophageal reflux disease): Qualified Codes: K21.9 - Gastro-esophageal reflux disease without esophagitis (4) Chronic asthma: Qualified Codes: J45.909 - Unspecified asthma, uncomplicated Krunal Villegas MD, R3 Jun 23, 2017 08:38 Madeleine Mari MD Jun 28, 2017 13:00
[2017-06-23] MEDS ORDERED: ASPIRIN 81 MG CHEW TAB CHEW SCH (09:00)
[2017-06-23] MEDS ORDERED: LORATADINE 10 MG TAB PO SCH (09:00)
[2017-06-23] MEDS ORDERED: PRASUGREL 5 MG TAB PO SCH (09:00)
[2017-06-23] MEDS ORDERED: ATENOLOL 25 MG TAB PO SCH (09:00)
--- NOTE | 2017-06-23 09:15 | MB ---
cc: SESAR CHUN MD DATE OF CONSULTATION 06/22/2017 DATE OF 1935 [employer] Jony Motta MD REFERRING PHYSICIAN Fransico Mendoza MD REASON FOR CONSULTATION I was asked by Dr. Mendoza to evaluate patient with near-syncope and lower sternal/epigastric pain. HISTORY OF PRESENT ILLNESS Cristina Jung is a very pleasant 82-year-old woman with a past medical history significant for coronary artery disease, hypertension and gastroesophageal reflux disease. This morning while at [employer] standing, she developed a "bad spell". She had sudden onset of shortness of breath, feeling hot and sweaty and faint. She sat down and put her head between her legs and felt better. She was able to make it out of [employer] and her drove her to the emergency room. She also reports having associated sternal subcostal discomfort, though no nausea or vomiting. MEDICATIONS PRIOR TO ADMISSION 1. Atenolol. 2. Enalapril. 3. Aspirin. 4. Effient. ALLERGIES SULFA MEPERIDINE. FENTANYL. PAST MEDICAL HISTORY 1. As above. 2. She has history of irregular heartbeats, though denies atrial fibrillation, valvular regurgitation. 3. Gastroesophageal reflux disease. 4. Hiatal hernia. 5. Hypertension. 6. Anxiety disorder. 7. Stress incontinence. 8. Spasmodic dysphonia. PAST SURGICAL HISTORY 1. Tonsillectomy. 2. Hysterectomy. 3. Appendectomy. 4. Left humeral ORIF. 5. Cataract extraction. 6. Cardiac catheterization with stent placement in 2017. SOCIAL HISTORY She is . She does not smoke. She drinks wine occasionally. No illicit drug use. FAMILY HISTORY Father at 52 years of age from myocardial infarction. Mother from congestive heart failure. She has a brother also with coronary artery disease REVIEW OF SYSTEMS As above; 12-point review of systems reviewed and noted. No recent fevers, chills, cough or sputum production. No recent gastrointestinal, genitourinary or neurologic symptoms. PHYSICAL EXAMINATION VITAL SIGNS: Temperature 97.6, pulse 68, respirations 14, b;8 165/70, oxygen saturation 98-100%. GENERAL: She is very pleasant, petite. In no acute distress. HEENT: Anicteric. PERRLA. NECK: Flat JVD. No carotid bruits. LUNGS: Clear to auscultation. Regular rate and rhythm. A 2/6 systolic murmur at the left lower sternal border. ABDOMEN: Soft and nontender. EXTREMITIES: No peripheral edema. ECG Sinus rhythm. Heart rate 56 beats/minute. Left anterior hemiblock. Poor R-wave progression. Diffuse nonspecific ST-T abnormality. LABORATORY DATA WBC 5.9, hemoglobin 13.3, hematocrit 39.8, platelet count 166,000. INR is 1.0. D-dimer is 0.51, creatinine 0.83, BUN 25, magnesium 2.2, potassium 3.7. Troponin less than 0.02. BNP 64. Urinalysis is benign. Chest x-ray - No cardiomegaly or congestive heart failure. IMPRESSION 1. Presyncope during [employer] while standing. She reports taking her atenolol this morning and not having breakfast. Her symptoms are likely due to vasovagal reaction or hypotension due to orthostasis. 2. History of coronary artery disease. No clinical symptoms of angina. Troponin negative for acute coronary syndrome. 3. Hypertension. She reports history of labile hypertension. 4. History of gastroesophageal reflux disease. 5. History of COPD/asthma. PLAN 1. Continue telemetry overnight. 2. Continue to trend troponins. 3. Continue all outpatient medications. 4. Gentle IV fluid resuscitation. 5. Hopefully can be seen in the a.m. with continued negative observation and testing. 6. We will notify Dr. Motta of hospital observation status. Thank you for allowing me to participate in her care. Thank you for this consultation. MD JEFFREY Muñoz/SHOBHA /8:20 PM /10:00 AM
[2017-06-23 09:20] LABS: AUTOMATED NEUTROPHIL # 3.3 TH/MM3 (1.8-7.7); BASOPHIL # 0.1 TH/MM3 (0-0.2); BASOPHIL % 1.3 % (0.0-2.0); EOSINOPHIL # 0.1 TH/MM3 (0-0.4); EOSINOPHIL % 2.5 % (0.0-4.0); HEMATOCRIT 39.6 % (35.0-46.0); HEMO FLAGS DIFF FINAL; LYMPH % 22.7 % (9.0-44.0); LYMPHOCYTE # 1.1 TH/MM3 (1.0-4.8); MEAN CELL VOLUME 87.8 FL (80.0-100.0); MEAN CORPUSCULAR HEMOGLOBIN 29.5 PG (27.0-34.0); MEAN CORPUSCULAR HGB CONC 33.6 % (32.0-36.0); MONO % 8.4 % (0.0-8.0); NEUT % 65.1 % (16.0-70.0); PLATELET COUNT 181 TH/MM3 (150-450); RED BLOOD COUNT 4.51 MIL/MM3 (4.00-5.30); RED CELL DISTRIBUTION WIDTH 14.6 % (11.6-17.2); WHITE BLOOD COUNT 5.1 TH/MM3 (4.0-11.0)
[2017-06-23 09:50] LABS: ALKALINE PHOSPHATASE 63 U/L (45-117); ALT (GPT) 28 U/L (10-53); ANION GAP 7 MEQ/L (5-15); AST (GOT) 35 U/L (15-37); BICARBONATE 29.4 MEQ/L (21.0-32.0); BLOOD UREA NITROGEN 25 MG/DL (7-18); CHLORIDE 103 MEQ/L (98-107); GLOMERULAR FILTRATION RATE 69 ML/MIN (>89); HDL CHOLESTEROL 70.1 MG/DL (40.0-60.0); LDL CHOLESTEROL 50 MG/DL (0-99); SODIUM (NA) 139 MEQ/L (136-145); TOTAL BILIRUBIN ADULT 0.6 MG/DL (0.2-1.0)
[2017-06-23] MEDS: ENALAPRIL MALEATE 10 MG TAB PO SCH (16:08)
--- NOTE | 2017-06-23 17:20 | HHI.DCPOC ---
Discharge Care Plan Diagnosis: (1) Chest pain (2) Near syncope Goals to Promote Your Health * To prevent worsening of your condition and complications * To maintain your health at the optimal level Directions to Meet Your Goals Take your medications as prescribed Follow your dietary instruction Follow activity as directed Keep your appointments as scheduled Take your immunizations and boosters as scheduled If your symptoms worsen call your PCP, if no PCP go to Urgent Care Center or Emergency Room Smoking is Dangerous to Your Health. Avoid second hand smoke Call the 24-hour hour crisis hotline for domestic abuse at Krunal Villegas MD, R3 Jun 23, 2017 17:20
[2017-06-23] MEDS ORDERED: ENAL10TA PO (17:22)
[2017-06-25] MEDS ORDERED: ASPI1TAB57 PO (11:38)
[2017-06-25] MEDS ORDERED: PRAS5TAB PO (11:38)
== END 2017-06-23 18:00 | disposition home or self-care (01) ==
LOC: NEPC 08:17 → NEDA 12:34 → NEPGCP 14:52
PROVIDERS: ADMIT Family Medicine; ATTEND Family Medicine
DX: R07.9 Chest pain, unspecified (principal); R55 Syncope and collapse; I25.10 Atherosclerotic heart disease of native coronary artery without angina pectoris; K21.9 Gastro-esophageal reflux disease without esophagitis; I10 Essential (primary) hypertension; R42 Dizziness and giddiness; R10.13 Epigastric pain; J45.909 Unspecified asthma, uncomplicated; R61 Generalized hyperhidrosis; R00.2 Palpitations; R00.0 Tachycardia, unspecified; I49.3 Ventricular premature depolarization; K44.9 Diaphragmatic hernia without obstruction or gangrene; N60.19 Diffuse cystic mastopathy of unspecified breast; J32.9 Chronic sinusitis, unspecified; R13.10 Dysphagia, unspecified; K56.41 Fecal impaction; R06.02 Shortness of breath; J38.3 Other diseases of vocal cords; K12.0 Recurrent oral aphthae; N39.3 Stress incontinence (female) (male); Z95.5 Presence of coronary angioplasty implant and graft; Z87.891 Personal history of nicotine dependence
CPT/HCPCS: 71010; 80053; 80061; 81001; 82550; 83735; 83880; 84443; 84484; 85014; 85018; 85025; 85379; 85610; 85730; 93005; 94150; 94664; 99285; G0378; J7626